=== PATIENT | male | born 2000 | race African-American/Black ===

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

== ENCOUNTER 2020-07-02 14:35 | Emergency (ER) | payer OTHER ==
[~2020-07-02] VITALS: Ht 175.3 cm; Wt 61.2 kg
[2020-07-02] MEDS ORDERED: IBUPROFEN 800800 M1 PO (16:17)
[2020-07-02] MEDS ORDERED: FLEXERIL PO (16:17)
[2020-07-02 16:31] VITALS: BP 117/73
== END 2020-07-02 16:32 | disposition home or self-care (01) ==
LOC: M.ERS 14:35
DX: S16.1XXA Strain of muscle, fascia and tendon at neck level, initial encounter (principal); S39.012A Strain of muscle, fascia and tendon of lower back, initial encounter; S29.012A Strain of muscle and tendon of back wall of thorax, initial encounter; V89.2XXA Person injured in unspecified motor-vehicle accident, traffic, initial encounter; Y93.89 Activity, other specified; Y92.89 Other specified places as the place of occurrence of the external cause; Y99.8 Other external cause status